=== PATIENT | female | born 1970 | race Hispanic/Latino ===

== ENCOUNTER 2021-11-09 19:35 | Emergency (ER) | payer OTHER, SELFPAY ==
[2021-11-09] MEDS ORDERED: Ketorolac Tromethamine 30 MG/ML VIAL ONE (22:31)
== END 2021-11-09 22:46 | disposition home or self-care (01) ==
LOC: ERS 19:35
DX: S40.011A Contusion of right shoulder, initial encounter (principal); I10 Essential (primary) hypertension; E11.9 Type 2 diabetes mellitus without complications; V89.2XXA Person injured in unspecified motor-vehicle accident, traffic, initial encounter; Y92.410 Unspecified street and highway as the place of occurrence of the external cause
CPT/HCPCS: 96372; J1885